=== PATIENT | female | born 1950 | race Caucasian/White ===

== ENCOUNTER 2019-11-11 19:28 | Inpatient (IN) | payer MEDICARE ==
[~2019-11-11] VITALS: Ht 165.1 cm; Wt 48.2 kg
[~2019-11-11 19:28] MED LIST: ASPI325 PO; HYDR1TAB94 PO
[2019-11-11 20:00] LABS: BASOPHILS ABSOLUTE AUTO 0.08 K/mm3 (0.00-0.23); BASOPHILS PERCENT AUTO 1 % (0-2); EOSINOPHILS ABSOLUTE AUTO 0.17 K/mm3 (0.00-0.68); EOSINOPHILS PERCENT AUTO 2 % (0-6); Hematocrit 45.8 % (33.0-51.0); Hemoglobin 14.9 g/dL (11.5-16.0); IMMATURE GRAN ABSOLUTE AUTO 0.04 K/mm3 (0.00-0.10); IMMATURE GRAN PERCENT AUTO 0 % (0-1); LYMPHOCYTES ABSOLUTE AUTO 3.97 K/mm3 (0.84-5.20); LYMPHOCYTES PERCENT AUTO 40 % (21-46); MONOCYTES ABSOLUTE AUTO 0.62 K/mm3 (0.16-1.47); MONOCYTES PERCENT AUTO 6 % (4-13); Mean Corpuscular HGB 30.7 pg (26.0-34.0); Mean Corpuscular HGB Conc 32.5 g/dL (31.5-36.5); Mean Corpuscular Volume 94 fL (80-100); Mean Platelet Volume 9.6 fL (9.1-12.4); NEUTROPHILS ABSOLUTE AUTO 5.18 K/mm3 (1.96-9.15); NEUTROPHILS PERCENT AUTO 51 % (41-73); Platelet Count 432 K/mm3 (150-400); RDW Coefficient Variation 12.3 % (11.7-14.2); RDW Standard Deviation 42.5 fL (35.1-46.3); Red Blood Cell Count 4.86 M/mm3 (3.80-5.20); White Blood Cell Count 10.06 K/mm3 (4.00-11.30)
[2019-11-11 20:18] LABS: International Normalized Ratio 1.11; Prothrombin Time Results 11.8 Sec (9.7-11.5)
[2019-11-11 20:20] LABS: Alanine Aminotransfer (ALT/SGP 14 U/L (12-78); Albumin, Blood 3.8 g/dL (3.4-5.0); Albumin/Globulin Ratio 1.2 (0.8-1.8); Alk Phos 57 U/L (50-136); Anion Gap 9 mmol/L (6-16); Aspartate Aminotrans (AST/SGOT 14 U/L (12-37); Bilirubin, Total 0.8 mg/dL (0.1-1.0); Blood Urea Nitrogen 19 mg/dL (8-24); Bun/Creatinine Ratio 32.8 (12.0-20.0); CO2, Blood 24 mmol/L (21-32); Calcium, Blood 8.9 mg/dL (8.5-10.1); Chloride, Blood 107 mmol/L (98-108); Creatinine, Blood 0.58 mg/dL (0.40-1.00); Globulin, Blood 3.3 g/dL (2.2-4.0); Glomerular Filtration Rate >60 (60-); Glucose, Blood 128 mg/dL (70-99); Potassium, Blood 3.2 mmol/L (3.5-5.5); Sodium, Blood 140 mmol/L (136-145); Total Protein, Blood 7.1 g/dL (6.4-8.2)
[2019-11-11 20:40] LABS: Source, Urine Catheter
[2019-11-11 20:51] LABS: Appearance, Urine Clear (Clear); Bilirubin, Urine Neg (Neg); Blood, Urine 1+ (Neg); Color, Urine Yellow (P-Yellow); Glucose Qualitative, Urine Neg (Neg); Ketones, Urine 1+ (Neg); Leukocyte Esterase, Urine Neg (Neg); Nitrite, Urine Neg (Neg); Protein, Urine 3+ (Neg); Urobilinogen, Urine NORM (Normal)
[2019-11-11 20:58] LABS: Red Blood Cells, Urine Rare /hpf (0-2); White Blood Cells, Urine 0-2 /hpf (0-5)
[2019-11-11 20:59] LABS: Bacteria Few /hpf; Squamous Epithelial Cells Rare /hpf (Few)
[2019-11-12 00:50] LABS: U Amphetamine Screen Not Detected; U Barbituate Screen Not Detected; U Benzodiazapine Screen Not Detected; U Buprenorphine Screen Not Detected; U Cannabinoids Screen Not Detected; U Cocaine Screen Not Detected; U Methadone Screen Not Detected; U Methamphetamine Screen Not Detected; U Opiates Screen Not Detected; U Oxycodone Screen Not Detected; U Phencyclidine Screen Not Detected; U Propoxyphene Screen Not Detected
--- NOTE | 2019-11-12 02:51 | NUR ---
ADMIT NOTE 69 YEAR OLD FEMALE ADMIT TO ICU [address] PAZ SERVICE PER ESVIN VIA ER. MOONITOR PLACED SHOWING SINUS TACH HEART RATE 100'S-110'S. LUNG SOUNDS CLEAR UPPER LOBES WITH DECREASED COARSE SOUNDS IN THE BASES. ABDOMEN SOFT WITH BOWEL SOUNDS FOUR QUADS.TREJO PATENT DRAINING RALPH URINE RIDE SIDE REMAINS FLACCID. REMAINS UNSRESPONSIVE TO TACTILE OR VERBAL STIMULI CONTINUE TO MONITOR AND RREPORT CHANGE IN PATIENT CONDITION
[2019-11-12 03:35] LABS: Hematocrit 53.5 % (33.0-51.0); Hemoglobin 16.8 g/dL (11.5-16.0); Mean Corpuscular HGB 30.4 pg (26.0-34.0); Mean Corpuscular HGB Conc 31.4 g/dL (31.5-36.5); Mean Corpuscular Volume 97 fL (80-100); Mean Platelet Volume 8.9 fL (9.1-12.4); Platelet Count 422 K/mm3 (150-400); RDW Standard Deviation 43.4 fL (35.1-46.3); Red Blood Cell Count 5.52 M/mm3 (3.80-5.20); White Blood Cell Count 23.82 K/mm3 (4.00-11.30)
[2019-11-12 04:48] LABS: Alanine Aminotransfer (ALT/SGP 18 U/L (12-78); Alk Phos 66 U/L (50-136); Anion Gap 7 mmol/L (6-16); Aspartate Aminotrans (AST/SGOT 13 U/L (12-37); Bilirubin, Total 0.7 mg/dL (0.1-1.0); Blood Urea Nitrogen 13 mg/dL (8-24); Bun/Creatinine Ratio 26.5 (12.0-20.0); CO2, Blood 26 mmol/L (21-32); Calcium, Blood 9.2 mg/dL (8.5-10.1); Chloride, Blood 105 mmol/L (98-108); Creatinine, Blood 0.49 mg/dL (0.40-1.00); Globulin, Blood 3.9 g/dL (2.2-4.0); Glomerular Filtration Rate >60 (60-); Glucose, Blood 137 mg/dL (70-99); Sodium, Blood 138 mmol/L (136-145); Total Protein, Blood 7.9 g/dL (6.4-8.2)
--- NOTE | 2019-11-12 05:50 | NUR ---
SHIFT SUMMARY; REMAINS UNRESPONSIVE TO TACTILE AND VERBAL STIMULI GAZE FIXED HOWEVER PUPILS REACITVE BRISKLY. MONITOR INTACT SHOWING SINUS TACH. HEART RATE 100'S-110'S. LUNF SOUNDS CLEAR UPPER WITH DECREASED SOUNDS IN THE BASES. RESPIRATIONS SHALLOW. ABDOMEN SOFT WITH BOWEL SOUNDS FOUR QUADS. TREJO PATENT DRAINING RALPH URINE. NO EDEMA NOTED. CONTINUE TO MONITOR AND REPORT CHANGE IN PATIENT CONDITION D
--- NOTE | 2019-11-12 07:24 | NUR ---
ASSUMING CARE: ASSUMED CARE OF PT. PT IS RESPONSIVE TO DEEP PAIN STIMULI BUT NOT TO VERBAL STIMULI. BABINSKI REFLEX NOTED BUT SLUGGISH RESPONSE. PT IS ON 2LPM NC. SEEN BY DR. HARRIS. UPDATED HIM OF PT'S STATUS. PT MOVED HER LEFT ARM CLOSE TO HER CHEST WITHOUT BEING ASKED.
--- NOTE | 2019-11-12 08:26 | NUR ---
BOOK EDITOR AT BEDSIDE DOING ECHOCARDIOGRAM AT THIS TIME.
--- NOTE | 2019-11-12 08:47 | NUR ---
PT'S NEIGHBOR NICKIE AT BEDSIDE. ASKED HER TO WRITE THE NAMES PT'S FAMILY SO WE CAN CONTACT PT'S FAMILY REGARDING PT.
--- NOTE | 2019-11-12 10:51 | NUR ---
Clinical Visit: Pt is not responsive to verbal cues, gentle touch. Hans, nurse, reports that pt has been responsive only to painful stimuli. Discussed concerns. She has spoken to the pt's neighbor. Neighbor reports that it was pt's wishes to be DNR/DNI status. There is no advance directive, that she is aware of. She provides a phone number to Rae Glover, a cousin. [phone]. Attempted to call. Left message with request for a return call. Will discuss DNR/DNI status if able to get ahold of her. This is the only known family member that the hospital is aware of.
--- NOTE | 2019-11-12 10:59 | NUR ---
PLACED NG TUBE ORDERED. XR DONE FOR NG TUBE CONFIRMATION PLACEMENT. DR. VARGAS RADIOLOGIST CONFIRMED NG TUBE PLACEMENT WHICH IS IN THE BODY OF THE STOMACH.
--- NOTE | 2019-11-12 11:13 | NUR ---
FABIANA, PHOTORESIST PRINTER AT BEDSIDE.
--- NOTE | 2019-11-12 16:47 | NUR ---
PT STARTED OPENING HER EYES TO VOICE AROUND 1430 TODAY BUT NOT FOLLOWING COMMANDS. PT CONTINUES TO BE OPENING HER EYES TO VOICE, STILL NOT FOLLOWING COMMANDS. PT TRIED TO REPOSITION HERSELF IN BED. NOTED SHE IS ABLE TO MOVE HER LEFT ARM AND SHOULDER BUT NOT THE R ARM. R SIDE OF BODY NOTED TO BE WEAKER THAN LEFT.
--- NOTE | 2019-11-12 18:37 | NUR ---
SHIFT SUMMARY: PT IS STILL OBTUNDED. SHE DOES OPENS HER EYES TO VOICE BUT NOT FOLLOWING COMMANDS. R SIDED WEAKNESS NOTED. PT MOVES HER LEFT UPPER EXTREMITY. ECHOCARDIOGRAM AND EEG WERE DONE. MRI PENDING- NO FAMILY TO FILL OUT MRI SCREENING. EDEL TAFOYA A COUSIN OF THE PATIENT, PER PT'S NEIGHBOR, WAS CONTACTED MANY TIME BUT HAS NOT HEARD ANY WORD FROM HER.
--- NOTE | 2019-11-12 19:15 | NUR ---
ASSUMED CARE AT 1915. PT OPEN EYES TO VOICE, ABLE TO INTERMITTEN FOLLOW WITH LEFT ARM/ BRISK WITHDRAWLING BILAT LOWER EXTREMTIES. RUE FLACCID. DELAYED WITHDRAWL WITH PAINFUL STIMULATION. NGT IN PLACE. TREJO INPLACE AND PATENT. PT IS TACHY HRS IN THE 115S. ELEVATED BLOOD PRESSURE PRN FOR BP>180. NS INFUSING AT 75ML/HR.
[2019-11-13 03:26] LABS: Hematocrit 46.7 % (33.0-51.0); Hemoglobin 15.9 g/dL (11.5-16.0); Mean Corpuscular HGB 30.8 pg (26.0-34.0); Mean Platelet Volume 9.2 fL (9.1-12.4); Platelet Count 456 K/mm3 (150-400); RDW Coefficient Variation 11.9 % (11.7-14.2); RDW Standard Deviation 39.5 fL (35.1-46.3); Red Blood Cell Count 5.17 M/mm3 (3.80-5.20); White Blood Cell Count 21.74 K/mm3 (4.00-11.30)
[2019-11-13 03:32] LABS: Mean Corpuscular Volume 90 fL (80-100)
[2019-11-13 03:45] LABS: Anion Gap 9 mmol/L (6-16); Blood Urea Nitrogen 14 mg/dL (8-24); Bun/Creatinine Ratio 30.4 (12.0-20.0); CO2, Blood 22 mmol/L (21-32); Chloride, Blood 105 mmol/L (98-108); Creatinine, Blood 0.46 mg/dL (0.40-1.00); Glomerular Filtration Rate >60 (60-); Glucose, Blood 113 mg/dL (70-99); Potassium, Blood 3.7 mmol/L (3.5-5.5); Sodium, Blood 136 mmol/L (136-145)
--- NOTE | 2019-11-13 06:22 | NUR ---
PT OPENS EYE SPONTANEOUS AND TO VERBAL STIMULI, ABLE TO FOLLOW SIMPLE COMMANDS ON LEFT ARM, OPEN EYES AND MOUTH WHEN PROMPTED. STILL DROWSEY BUT ABLE TO KEEP EYES OPEN FOR LONGER. NO MOVEMENT RUE. PT MOANS AND MAKES SOUNDS BUT NO WORDS. HEART RATE 120-130S. HYDRALZINE GIVEN FOR BP >180 X1. SATS >95% ON ROOM AIR. TREJO IN PLACE AND PATENT. AFEBRILE. PT IS POOOLING SALIVA IN MOUTH PRN SUCTIONING REQUIRED. PT COUGH IS WEAK AND IS UNABLE TO CLEAR THROAT ON OWN. NO ACUTE EVENTS OVERNIGHT WILL CONTINUE TO MONITOR
--- NOTE | 2019-11-13 07:20 | NUR ---
ASSUMED CARE AT 0700. REPORT FROM AMADO STILL. PT RESTING IN BED. SNORING RESP. OPENS EYES TO VERBAL STIMULI. DOES NOT FOLLOW COMMANDS. APPEARS TO MAKE EYE CONTACT c STAFF, QUICKLY RETURNS TO SLEEP s CONSTANT VERBAL STIMULI. GROSS MOVEMENT TO LEFT ARM. NO MOVEMENT TO RIGHT ARM c PAINFUL STIMULI. WITHDRAWS FROM PAIN BILATERAL LOWER EXT. PT NON VERBAL. SHONNA. LUNGS DIMINISHED IN BASES. PT ON RA. SINUS TACH ON MONITOR, RATE 120'S. SBP GOAL OF 160-180. NGT TUBE TO RIGHT NARE, PLACEMENT VERIFIED BY AUSCULTATION. ABD FLAT, SOFT, NON TENDER. BT HYPOACTIVE. TREJO PATENT AND DRAINING TO GRAVITY, CLEAR YELLOW URINE. WILL CONTINUE TO MONITOR.
--- NOTE | 2019-11-13 10:24 | NUR ---
DR ÁLVAREZ AT BEDSIDE FOR ASSESSMENT. PT HAS BEEN AWAKE MOST OF MORNING. TRACKING STAFF IN ROOM. INCOHERANT SOUNDS. PT STILL NOT FOLLOWING DIRECTIONS. UNABLE TO COMPLETE MRI D/T LACK OF ABILITY TO COMPLETE SCREENING FORM. DR ÁLVAREZ NOTIFIED, CTA ORDERED. HR ADDRESSED, TOPROL 25 MG BID ORDERED. STATUS CHANGED TO PCU.
--- NOTE | 2019-11-13 14:14 | NUR ---
Spoke with nursing and update on pt's condition rec'd. Pt's neighbor, Chaparrita, and her [facility] friend have been in to visit her. Nursing reports multiple attempts have been made to contact pt's cousin. Messages have not been returned so far. Nursing reports pt has been receiving some in home care assistance through [employer] in home care [employer]. Nursing reports they spoke with Kami at [facility] and received some information. Code status on file at [facility] is full code per nursing. Blanka opened her eyes at random times during my visit. Unable to follow commands at this time. Nursing reports she is a little more awake than yesterday, but has no verbal response. Her friend who assists with her yard maintenence states that Blanka receives [employer] food deliveries and her in home care helper assists with some meal prep. He ([facility] friend) reports that she has had "Seizure type episodes in the past where she acted similar to this but she woke up about a week later and was her normal self." He admits that "These episodes have been happening more frequently lately." PC will continue to follow for symptom management and advanced care planning. Attempts will continue to be made to contact pt's NOK to determine a decision maker if Blanka continues to not be able to make decisions for herself. At the time of this visit, Blanka appeared to be comfortable.
--- NOTE | 2019-11-13 17:25 | NUR ---
SHIFT SUMMARY PT NEURO STATUS IMPROVED THROUGHOUT THIS SHIFT. PT OPENING EYES SPONTANEOUSLY. APPEARS AWAKE FOR APPROX 1/4 OF SHIFT. TRACKING STAFF IN ROOM. CONTINUES TO HAVE GROSS MOVEMENT TO LEFT ARM, WITHDRAWLS FROM PAINFUL STIMULI TO LOWER EXTREMITIES. PT SQUEEZES LEFT HAND ON COMMAND. NGT REMAINS IN PLACE, CLAMPED. TREJO PATENT AND DRAINING TO GRAVITY. PT STATUS CHANGED TO PCU THIS SHIFT. CT HEAD COMPLETE THIS SHIFT. REPORT TO ONCOMING NURSE.
--- NOTE | 2019-11-13 19:15 | NUR ---
ASSUMED CARE AT 1915. PT SLEEPING, ABLE TO OPEN EYES TO VOICE, AND MOVES LEFT ARM PURPOSEFUL. SINUS TACHY, BP STABLE, ON ROOM AIR. TREJO IN PLACE AND DRAIN TO GRAVITY. NGT IN RIGHT NARE. NS INFUSING AT 75ML/HR.
[2019-11-14 03:27] LABS: BASOPHILS ABSOLUTE AUTO 0.03 K/mm3 (0.00-0.23); BASOPHILS PERCENT AUTO 0 % (0-2); EOSINOPHILS ABSOLUTE AUTO 0.01 K/mm3 (0.00-0.68); EOSINOPHILS PERCENT AUTO 0 % (0-6); Hematocrit 44.1 % (33.0-51.0); IMMATURE GRAN ABSOLUTE AUTO 0.06 K/mm3 (0.00-0.10); IMMATURE GRAN PERCENT AUTO 0 % (0-1); LYMPHOCYTES ABSOLUTE AUTO 1.53 K/mm3 (0.84-5.20); LYMPHOCYTES PERCENT AUTO 8 % (21-46); MONOCYTES ABSOLUTE AUTO 1.45 K/mm3 (0.16-1.47); MONOCYTES PERCENT AUTO 8 % (4-13); Mean Corpuscular HGB 30.7 pg (26.0-34.0); Mean Corpuscular Volume 90 fL (80-100); Mean Platelet Volume 9.2 fL (9.1-12.4); NEUTROPHILS ABSOLUTE AUTO 15.87 K/mm3 (1.96-9.15); NEUTROPHILS PERCENT AUTO 84 % (41-73); Platelet Count 405 K/mm3 (150-400); RDW Coefficient Variation 12.1 % (11.7-14.2); RDW Standard Deviation 40.3 fL (35.1-46.3); Red Blood Cell Count 4.88 M/mm3 (3.80-5.20); White Blood Cell Count 18.95 K/mm3 (4.00-11.30)
[2019-11-14 03:41] LABS: Anion Gap 9 mmol/L (6-16); Blood Urea Nitrogen 13 mg/dL (8-24); Bun/Creatinine Ratio 28.1 (12.0-20.0); CO2, Blood 22 mmol/L (21-32); Calcium, Blood 8.2 mg/dL (8.5-10.1); Chloride, Blood 106 mmol/L (98-108); Creatinine, Blood 0.46 mg/dL (0.40-1.00); Glomerular Filtration Rate >60 (60-); Glucose, Blood 99 mg/dL (70-99); Potassium, Blood 3.3 mmol/L (3.5-5.5); Sodium, Blood 137 mmol/L (136-145)
--- NOTE | 2019-11-14 06:30 | NUR ---
PT LETHARGIC, OPENS EYE SPONTANEOUSLY AND TO VERBAL. INTERMITTEN FOLLOWING COMMANDS. PT TACHY WITH ELEVATED BP. SATING >90 ON ROOM AIR. TREJO IN PLACE AND DRAINING TO GRAVITY. NGT IN PLACE. OT AND PT CONSULT ORDER PER DR. PAZ. PT HAS NPO FOR NEARLY 72 HOUR, NEED NURTRION ORDERED TO START TUBE FEED. POTASSIUM 3.3 40 MEQS ORDER AND INFUSING. NO ACUTE EVENTS OVERNIGHT WILL CONTINUE TO MONITOR
--- NOTE | 2019-11-14 07:25 | NUR ---
START OF SHIFT NOTE: RECEIVED REPORT FROM TESSY FISCHER, ASSUMED CARE, PATIENT SPONTANEOUSLY OPEN HER EYES BUT HAS A BLANK STARE, DOES NOT FOLLOW COMMANDS, MOVES RIGHT UPPER AND LOWER EXTREMITIES ON OWN, HOWEVER, RIGHT LOWER EXTREMITY WITHDRAWS SLIGHTLY FROM PAIN, RIGHT UPPER EXTREMITY IS FLACCID, PATIENT IS AFEBRILED, APPEARS TO BE IN NO PAIN AT THIS TIME, NG IN RIGHT NARES, NEED DIETARY CONSULT, LUNG SOUNDS ARE CLEAR, SINUS TACHY IN 100'S, SBP IN 120'S, IVF INFUSING AT 75 CC/HR ALSO HAS POTASSIUM INFUSING FOR K+ OF 3.3, BOWEL TONES HYPOACTIVE, PATIENT HAS TREJO CATHETER IN AND DRAINING GOOD AMOUNT OF CLEAR LIGHT YELLOW URINE, SEIZURE PADS IN PLACE, SKIN OVERALL C/D/I, CALL LIGHT IN REACH, WILL CONTINUE TO MONITOR.
--- NOTE | 2019-11-14 09:15 | NUR ---
SHY ARRIAGA TO SEE PATIENT, UPDATE PROVIDED, AM MEDICATIONS GIVEN, TUBE FEED, PIVOT 1.5 STARTED AT 20 CC/HR WHICH IS ALSO GOAL RATE, PATIENT TOLERATING WELL, CALL LIGHT IN REACH, WILL CONTINUE TO MONITOR.
--- NOTE | 2019-11-14 09:27 | NUR ---
ATTEMPTED TO CALL CONSULT TO DR. MORENO, LEFT MESSAGE ON HIS CELL PHONE, AWAITING CALL BACK.
--- NOTE | 2019-11-14 10:06 | NUR ---
DR. MORENO'S OFFICE CALLED BACK AND RELAYED THE MESSAGE THAT DR. MORENO IS NOT FIELD HOCKEY AND LACROSSE COACH, HE IS SEEING PATIENTS OTHERWISE, HE IS NOT ABLE TO CONSULT ON THIS CASE.
--- NOTE | 2019-11-14 10:44 | NUR ---
DR. ÁLVAREZ NOTIFIED THAT NEUROLOGY WILL NOT BE ABLE TO CONSULT ON ROOM 16, NO NEW ORDERS RECEIVED.
--- NOTE | 2019-11-14 12:28 | NUR ---
PATIENT IS RESTING COMFORTABLY AT THIS TIME, TUBE FEED INFUSING ORDERED, SLIGHT IMPROVEMENT IN MOVEMENT ON RIGHT UPPER AND LOWER EXTREMITIES, CALL LIGHT IN REACH, WILL CONTINUE TO MONITOR.
--- NOTE | 2019-11-14 13:44 | NUR ---
PT/OT IN TO EVALUATE PATIENT, BUT WERE UNABLE TO WORK WITH HER, WILL COME BACK LATER TODAY OR TOMORROW.
--- NOTE | 2019-11-14 15:00 | NUR ---
PATIENT'S NEIGHBOR AND CAREGIVER NICKIE IN TO SEE PATIENT, SAT WITH PATIENT FOR SOME TIME, PATIENT APPEARS TO BE SLEEPING, CALL LIGHT IN REACH, WILL CONTINUE TO MONITOR.
--- NOTE | 2019-11-14 17:55 | NUR ---
SHIFT SUMMARY NOTE: NO ACUTE EVENTS DURING THIS SHIFT, PATIENT CONTINUES TO BE NONVERBAL, OPENS EYES SPONTANEOUSLY BUT GAZE IS NOT PURPOSEFUL, UNABLE TO FOLLOW COMMANDS AT TIMES, RIGHT SIDE FLACCID, REPOSITIONED FREQUENTLY, TUBE FEED STARTED WITH PIVOT 1.5 AT 20 CC/HR WHICH IS GOAL, PATIENT TOLERATING WELL, NEW PIV STARTED ON RIGHT WRIST, PATIENT TOLERATED WELL, FOR DETAILS SEE SHIFT ASSESSMENT DOCUMENTATION AND NURSES NOTES, CALL LIGHT IN REACH, WILL CONTINUE TO MONITOR AND GIVE REPORT TO ONCOMING INSURANCE ACCOUNT REPRESENTATIVE.
--- NOTE | 2019-11-14 20:31 | NUR ---
ASSUMPTION OF CARE ASSUMED CARE OF PT @ 1900, PT IN BED, OPENS EYES TO VERBAL STIMULI, DOES NOT ANSWER QUESTIONS OR FOLLOW DIRECTIONS, GRASPS OBJECTS IN L HAND BUT DOES NOT SQUEEZE ON COMMAND. LS COARSE IN UPPER LOBES, O2 SATURATIONS MAINTAINED > 90% ON RA, SUCTIONING ORAL SECRETIONS NEEDED. MONITOR SHOWS SINUS TACH, HR 100-110, BP STABLE. TREJO DRAINING YELLOW URINE. SEIZURE PADS IN PLACE.
[2019-11-15 04:09] LABS: BASOPHILS ABSOLUTE AUTO 0.02 K/mm3 (0.00-0.23); BASOPHILS PERCENT AUTO 0 % (0-2); EOSINOPHILS ABSOLUTE AUTO 0.01 K/mm3 (0.00-0.68); EOSINOPHILS PERCENT AUTO 0 % (0-6); Hematocrit 41.2 % (33.0-51.0); Hemoglobin 14.1 g/dL (11.5-16.0); IMMATURE GRAN ABSOLUTE AUTO 0.04 K/mm3 (0.00-0.10); IMMATURE GRAN PERCENT AUTO 0 % (0-1); LYMPHOCYTES ABSOLUTE AUTO 1.53 K/mm3 (0.84-5.20); LYMPHOCYTES PERCENT AUTO 10 % (21-46); MONOCYTES ABSOLUTE AUTO 1.35 K/mm3 (0.16-1.47); MONOCYTES PERCENT AUTO 9 % (4-13); Mean Corpuscular HGB Conc 34.2 g/dL (31.5-36.5); Mean Corpuscular Volume 91 fL (80-100); NEUTROPHILS ABSOLUTE AUTO 12.14 K/mm3 (1.96-9.15); NEUTROPHILS PERCENT AUTO 81 % (41-73); Platelet Count 355 K/mm3 (150-400); RDW Coefficient Variation 12.1 % (11.7-14.2); RDW Standard Deviation 40.8 fL (35.1-46.3); Red Blood Cell Count 4.55 M/mm3 (3.80-5.20); White Blood Cell Count 15.09 K/mm3 (4.00-11.30)
[2019-11-15 04:26] LABS: Anion Gap 6 mmol/L (6-16); Blood Urea Nitrogen 17 mg/dL (8-24); Bun/Creatinine Ratio 38.5 (12.0-20.0); CO2, Blood 24 mmol/L (21-32); Chloride, Blood 110 mmol/L (98-108); Creatinine, Blood 0.44 mg/dL (0.40-1.00); Glomerular Filtration Rate >60 (60-); Glucose, Blood 129 mg/dL (70-99); Magnesium, Blood 1.7 mg/dL (1.6-2.4); Phosphorus, Blood 1.5 mg/dL (2.5-4.9); Potassium, Blood 3.3 mmol/L (3.5-5.5); Sodium, Blood 140 mmol/L (136-145)
--- NOTE | 2019-11-15 05:50 | NUR ---
SHIFT SUMMARY NO ACUTE CHANGES OVERNIGHT. PT AROUSES TO VERBAL STIMULI BUT REMAINS NONVERBAL, NO MOVEMENT TO R ARM, L ARM APPEARS TO HAVE SOME PURPOSEFUL MOVEMENT, SCRATCHING NOSE, FEELS NG TUBE BUT DOES NOT PULL OR TUG. PT OPENS EYES BUT DOES NOT TRACK ITEMS. LS CLEAR, RESPIRATIONS EVEN AND UNLABORED, PT REMAINS ON RA. MONITOR SHOWS SINUS RHYTHM, HR 90'S TO 105, HTN SBP 140'S-160'S. NG IN PLACE, TF @ 20ml. TREJO IN PLACE DRAINING YELLOW URINE. MORNING LABS SHOWED LOW POTASSIUM AND PHOSPHORUS, K-PHOS CURRENTLY INFUSING.
--- NOTE | 2019-11-15 07:20 | NUR ---
START OF SHIFT NOTE: RECEIVED REPORT FROM XAVIER GALEAS RN, ASSUMED CARE, PATIENT LYING IN BED, HAS EYES OPEN, ABLE TO FOLLOW SOME COMMANDS, ABLE TO SQUEEZE WITH LEFT HAND AND WIGGLE LEFT TOES, SLIGHT MOVEMENT OF THUMB ON LEFT UE NOTED, NO MOVEMENT ON LEFT LE, PATIENT HAS NG TUBE IN PLACE, INFUSING TUBE FEED PIVOT 1.5 AT 20 CC/HR WITH 30 CC WATER FLUSHES EVERY 4 HOURS, PATIENT TOLERATING WELL, LUNG SOUNDS DIMINISHED, HR 90'S, SBP'S IN 120'S, BOWEL TONES PRESENT IN ALL FOUR QUADRANTS, TREJO CATHETER IN PLACE, DRAINING RALPH COLORED URINE, PEDAL PULSES PALPABLE, CALL LIGHT IN REACH, WILL CONTINUE TO MONITOR.
--- NOTE | 2019-11-15 08:08 | NUR ---
ISTRATE IN TO SEE PATIENT, NO NEW ORDERS AT THIS TIME.
--- NOTE | 2019-11-15 10:33 | NUR ---
PATIENT'S NEIGHBOR AND CAREGIVER NICKIE AND HER IN ROOM, PATIENT IS TRYING TO SPEAK A FEW WORDS, BUT ALSO TRYING TO REMOVE NG TUBE, INSTRUCTED TO NOT PULL, NICKIE WAS UPDATED ON PATIENT CONDITION, CALL LIGHT IN REACH, WILL CONTINUE TO MONITOR.
--- NOTE | 2019-11-15 16:21 | NUR ---
PATIENT IS MUCH MORE ALERT WITH NEIGHBORS AND FRIENDS VISITING, WAS OBSERVED TO LIFT HER RIGHT ARM WITHOUT ANY PROBLEMS, TRYING TO SPEAK WORDS, ALSO TRYING TO PUSH HERSELF UP IN BED, CALL LIGHT IN REACH, WILL CONTINUE TO MONITOR.
--- NOTE | 2019-11-15 16:48 | NUR ---
CALLED DR. ÁLVAREZ AND UPDATE HIM ON PATIENT'S CONDITION AND THAT SHE IS NOW MOVING RIGHT UPPER EXTREMITY AND ABLE TO RECOGNIZE FRIENDS AND SPEAK SOME WORDS TO THEM.
--- NOTE | 2019-11-15 17:55 | NUR ---
SHIFT SUMMARY NOTE: NO ACUTE EVENTS DURING THIS SHIFT, PATIENT IS NOW ABLE TO MOVE RIGHT ARM, LIFT IT TO HER FACE, SHE IS ALSO SPEAKING SOME WORDS, MORE ALERT, TRYING TO PULL ON NG, BUT EASILY REDIRECTED, VSS, AFEBRILE, HAD MANY VISITORS TODAY, NEIGHBORS AND FRIENDS, TUBE FEEDING INFUSING AT 20 CC/HR, IVF'S CONTINUE AT A RATE OF 75 CC/HR, ESCELLENT URINE OUTPUT, LIGHT YELLOW AT 1900 CC DURING THIS SHIFT, FOR DETAILS SEE SHIFT ASSESSMENT AND NURSES NOTES, CALL LIGHT IN REACH, WILL CONTINUE TO MONITOR.
--- NOTE | 2019-11-15 20:00 | NUR ---
ASSUMPTION OF CARE: PT ATTEMPTING TO VERBALLY COMMUNICATE BUT WORDS ARE GARBLED. ABLE TO LIFT LEFT ARM, BUT NOT RIGHT. PT IN ST IN THE 100S, SBP IN THE 160-170S. LUNG SOUNDS CLEAR AND DIM IN BASES, SPO2 >90% ON RA. NG IN PLACE WITH TF RUNNING AT GOAL OF 20ML/HR. 20 IN RW-INFUSING WITH NS AT 75MLS/HR. 20G IN RFA PATENT AND SL. TREJO IN PLACE. NEIGHBOR AT BEDSIDE. WILL CONTINUE TO MONITOR.
[2019-11-16 03:48] LABS: BASOPHILS ABSOLUTE AUTO 0.04 K/mm3 (0.00-0.23); BASOPHILS PERCENT AUTO 0 % (0-2); EOSINOPHILS ABSOLUTE AUTO 0.13 K/mm3 (0.00-0.68); EOSINOPHILS PERCENT AUTO 1 % (0-6); Hematocrit 44.7 % (33.0-51.0); Hemoglobin 15.1 g/dL (11.5-16.0); IMMATURE GRAN ABSOLUTE AUTO 0.04 K/mm3 (0.00-0.10); IMMATURE GRAN PERCENT AUTO 0 % (0-1); LYMPHOCYTES PERCENT AUTO 17 % (21-46); MONOCYTES ABSOLUTE AUTO 1.41 K/mm3 (0.16-1.47); MONOCYTES PERCENT AUTO 10 % (4-13); Mean Corpuscular HGB 30.5 pg (26.0-34.0); Mean Corpuscular HGB Conc 33.8 g/dL (31.5-36.5); Mean Corpuscular Volume 90 fL (80-100); NEUTROPHILS ABSOLUTE AUTO 10.22 K/mm3 (1.96-9.15); NEUTROPHILS PERCENT AUTO 72 % (41-73); Platelet Count 357 K/mm3 (150-400); RDW Coefficient Variation 12.3 % (11.7-14.2); RDW Standard Deviation 40.7 fL (35.1-46.3); Red Blood Cell Count 4.95 M/mm3 (3.80-5.20); White Blood Cell Count 14.24 K/mm3 (4.00-11.30)
[2019-11-16 04:02] LABS: Anion Gap 7 mmol/L (6-16); Blood Urea Nitrogen 11 mg/dL (8-24); Bun/Creatinine Ratio 28.1 (12.0-20.0); CO2, Blood 27 mmol/L (21-32); Calcium, Blood 8.3 mg/dL (8.5-10.1); Chloride, Blood 107 mmol/L (98-108); Creatinine, Blood 0.39 mg/dL (0.40-1.00); Glomerular Filtration Rate >60 (60-); Glucose, Blood 113 mg/dL (70-99); Magnesium, Blood 1.8 mg/dL (1.6-2.4); Phosphorus, Blood 2.2 mg/dL (2.5-4.9); Potassium, Blood 3.4 mmol/L (3.5-5.5); Sodium, Blood 141 mmol/L (136-145)
--- NOTE | 2019-11-16 06:17 | NUR ---
SHIFT SUMMARY: PT ATTEMPTING TO TALK AT BEGINNING OF SHIFT, HOWEVER HAS BEEN RESTING MAJORITY OF SHIFT. ABLE TO MOVE RIGHT ARM. ATTEMPTS TO MOVE L ARM. PT HAS BEEN ST WITH HR IN THE 110-120S. BP ELEVATED ON AND OFF THROUGHOUT SHIFT. LUNG SOUNDS CLEAR AND DIM AT BASES. SPO2 >90% ON RA. NG IN PLACE WITH CTF AT 20ML/HR-GOAL. 20G IN R WRIST AND 20G IN RFA. NS INFUSING AT 75ML/HR. TREJO IN PLACE DRAINING CLEAR YELLOW URINE. WILL GIVE REPORT TO ONCOMING RN
--- NOTE | 2019-11-16 10:57 | NUR ---
TRANSFER OF CARE REPORT CALLED TO TESSY MUNOZ ON MEDICAL. PT TO TRANSFER TO ROOM 330, VIA BED. BELONGINGS GATHERED AND TRANSPORTED WITH PT.
--- NOTE | 2019-11-16 13:11 | NUR ---
WE RECEIVED DUTCH TO RM 330 FROM ICU VIA HER BED AT 1145. WE SLID HER OVER ONTO THE NEW BED AND MADE HER COMFORTABLE ON HER RIGHT SIDE WITH HOB UP 40 DEGREES. NGT CAPPED FOR TRANSPORT. IVF'S STOPPED FOR TRANSPORT. SHE IS PALE. EYES OPEN. SHE CAN LOOK AT ME. THE ONLY COMMAND SHE HAS FOLLOWED HAS BEEN TO SQUEEZE MY HAND. SHE WAS ABLE TO WITH HER LH BUT NOT THE RIGHT. SHE CAN MOVE BOTH ARMS. I HAVE NOT SEEN HER MOVE HER LEGS. SINCE ARRIVAL I CHECKED HER NGT FOR PLACEMENT WITH AIR AND MY STETHASCOPE. IT HAS GOOD PLACEMENT. TUBE FEEDING RESUMED AT 20 MLS AN HOUR. RAC IV DC'D. KPHOS STILL INFUSING. WILL RESUME NS INFUSION AFTER KPHOS.
--- NOTE | 2019-11-16 13:54 | NUR ---
ASSUMED CARE OF PATIENT FROM ELEMENT SETTER TAMMY MEDEIROS AT THIS TIME. PATIENT REPOSITIONED ON LEFT SIDE AND HOB AT APPROX 45 DEGREES AT THIS TIME. PATIENT APPEARS COMFORTABLE. SHE LOOKS AT ME WHEN I SPEAK TO HER BUT IS UNABLE TO VERBALIZE ANYTHING. KPHOS RUNNING AND TF RUNNING THOUGH NGT. WILL CONT TO MONITOR
--- NOTE | 2019-11-16 17:29 | NUR ---
SHIFT SUMMARY PATIENT MOSTLY RESTING SINCE I ASSUMED CARE AROUND 1400. SHE HAS TRIED TO TALK A FEW TIMES BUT UNABLE TO GET CLEAR WORDS OUT. SOME MINIMAL MOVEMENT IN R HAND, MOVES LEFT ARM AND CAN SQUEEZE HAND WELL. TUBE FEED RUNNING AT 20/HR THROUGH NGT. APPROPRIATE PLACEMENT. 0 RESIDUALS. HOB 45 DEGREE.
--- NOTE | 2019-11-17 05:06 | NUR ---
SHIFT SUMMARY PT HAS BEEN MUCH MORE RESPONSIVE THIS SHIFT. SHE IS DROWSY AND SLEEPY MOST OF THE TIME. SHE HAS BEGAN TO MAKE EYE CONTACT WITH STAFF AND ANSWERS TO HER NAME. SHE ALSO HAS BEGAN ANSWERING "YEA" TO QUESTIONS, AND IS TRYING TO SPEAK WORDS, DIFFICULT TO UNDERSTAND. PT HAS APPARENT EXPRESSIVE APHASIA. PT IS ABLE TO LIFT LEFT ARM AND LEANS MORE TO THE LEFT SIDE. LOWER EXT FLACCID. NG TUBE IN PLACE. FEEDINGS BEING CONTINUED AT ORDERED RATE TOLERATING FEEDS, SHE RUBS NOSE OCASSIONALLY BUT DOES NOT TUG AT TUBE. VITALS ARE STABLE. TREJO IN PLACE PATENT AND DRAINING. BED IN LOWEST POSITION, CALL LIGHT WITHIN REACH. WILL CONTINUE TO MONITOR AND REPORT TO ONCOMING RN.
[2019-11-17 05:34] LABS: BASOPHILS ABSOLUTE AUTO 0.01 K/mm3 (0.00-0.23); BASOPHILS PERCENT AUTO 0 % (0-2); EOSINOPHILS PERCENT AUTO 0 % (0-6); Hematocrit 40.4 % (33.0-51.0); Hemoglobin 13.5 g/dL (11.5-16.0); IMMATURE GRAN ABSOLUTE AUTO 0.04 K/mm3 (0.00-0.10); IMMATURE GRAN PERCENT AUTO 0 % (0-1); LYMPHOCYTES ABSOLUTE AUTO 0.82 K/mm3 (0.84-5.20); LYMPHOCYTES PERCENT AUTO 8 % (21-46); MONOCYTES ABSOLUTE AUTO 0.42 K/mm3 (0.16-1.47); MONOCYTES PERCENT AUTO 4 % (4-13); Mean Corpuscular HGB 30.3 pg (26.0-34.0); Mean Corpuscular HGB Conc 33.4 g/dL (31.5-36.5); Mean Corpuscular Volume 91 fL (80-100); Mean Platelet Volume 9.4 fL (9.1-12.4); NEUTROPHILS ABSOLUTE AUTO 9.68 K/mm3 (1.96-9.15); NEUTROPHILS PERCENT AUTO 88 % (41-73); Platelet Count 361 K/mm3 (150-400); RDW Coefficient Variation 12.2 % (11.7-14.2); RDW Standard Deviation 40.8 fL (35.1-46.3); Red Blood Cell Count 4.45 M/mm3 (3.80-5.20); White Blood Cell Count 10.97 K/mm3 (4.00-11.30)
[2019-11-17 05:50] LABS: Albumin, Blood 2.5 g/dL (3.4-5.0); Anion Gap 6 mmol/L (6-16); Blood Urea Nitrogen 17 mg/dL (8-24); Bun/Creatinine Ratio 43.5 (12.0-20.0); CO2, Blood 26 mmol/L (21-32); Calcium, Blood 8.5 mg/dL (8.5-10.1); Chloride, Blood 108 mmol/L (98-108); Creatinine, Blood 0.39 mg/dL (0.40-1.00); Glomerular Filtration Rate >60 (60-); Glucose, Blood 137 mg/dL (70-99); Magnesium, Blood 1.9 mg/dL (1.6-2.4); Phosphorus, Blood 2.7 mg/dL (2.5-4.9); Potassium, Blood 3.9 mmol/L (3.5-5.5); Sodium, Blood 140 mmol/L (136-145)
--- NOTE | 2019-11-17 08:03 | NUR ---
NGT PLACEMENT CONFIRMED NGT PLACEMENT CONFIRMED BY THIS RN.
--- NOTE | 2019-11-17 10:22 | NUR ---
PT COUSIN UPDATED. PT COUSIN, EDEL MICHELET, UPDATED ON PT CONDITION. COUSIN REQUESTING CALL FROM PALLATIVE CARE. PALLATIVE NOTIFIED.
--- NOTE | 2019-11-17 10:55 | NUR ---
Recieved Call from patients cousin Rae. She reviewed that pt moved up here and isolated herself. She does not have family or children. Her cousin Rae sates she iselerly herself and hesitant to make decisions for her. Rae has a son Camacho who is a nurse and is Sharons god son. She is going to speak with him and ask if he is willing to be her next of kin decision maker. Review of of case with car wrecker and nursing. Will review with therapy for prognsosis and update family.
--- NOTE | 2019-11-17 14:03 | NUR ---
PERMISSION TO CARE I, KILLIAN CORTEZ A STUDENT NURSE, RECEIVED PERMISSION TO PROVIDE CARE ON 11-18-2019
--- NOTE | 2019-11-17 16:18 | NUR ---
RESTRAINTS APPLIED BILATERAL WRIST RESTRAINTS APPLIED AT 1613. PT CONTINUOUSLY TRYING TO PULL OUT NGT. PT HAD PREVIOUSLY PULLED OUT IV SLIGHTLY CAUSING IT TO LEAK. NEW IV PLACED. DR. OREILLYTRATE CALLED & INFORMED. NEED FOR NGT CONTINUES UNTIL SPEECH EVAL CAN BE COMPLETED. ORDER FOR BILATERAL SOFT WRIST RESTRAINTS OBTAINED. WILL CONTINUE TO MONITOR.
--- NOTE | 2019-11-17 16:51 | NUR ---
SHIFT SUMMARY PT PLACED IN WRIST RESTRAINTS TO PROTECT NGT AND IV LINE. PT ON JEVITY 1.5 RUNNING 25ML/HR. FLUSH Q4 30ML. TOLERATING WELL. LESS THAN 10CC RESIDUAL THROUGHOUT THE DAY. PT MORE ALERT THIS AFTERNOON. VERBALIZING, BUT INCOMPREHENSIBLE. TREJO DCED. AWAITING PT TO VOID. WILL CONTINUE TO MONITOR UNTIL TURNOVER IS COMPLETE.
--- NOTE | 2019-11-17 17:03 | NUR ---
Initial spiritual care note: Pt was alone in room and sleeping. She stirred to touch and mumbled incoherantly. She then went back to sleep. Per chart she is Alevism, so I provided audible prayer at bedside. I will remain available.
--- NOTE | 2019-11-18 03:49 | NUR ---
SHIFT SUMMARY ADMITTED FOR UNRESPONSIVENESS. FULL CODE. NS INFUSING @ 75 ML/HR. NG TUBE FEEDING @ 25 ML/HR, 30 ML FLUSHES ARE PROGRAMMED. Q 4 HR RESIDUAL CHECKS ARE ORDERED. LAST BLADDER SCAN REVEALED 247 ML OF URINE. PT HAD UNMEASURED VOID IN HER ATTENDS WELL. KEPPRA IV SCHEDULED. PT IS NPO. SOFT WRIST RESTRAINTS IN PLACE PT TRIES TO TUG AT HER IV'S AND NG TUBING. HOPEFUL FOR PT/OT AND SWALLOW EVAL TOMORROW. ORAL CARE IS BEING PERFORMED Q 4 HRS. RA. PT IS ORIENTED TO SELF AND CAREGIVER. NON-RESPONSIVE TO ME.
[2019-11-18 05:25] LABS: BASOPHILS ABSOLUTE AUTO 0.02 K/mm3 (0.00-0.23); BASOPHILS PERCENT AUTO 0 % (0-2); EOSINOPHILS PERCENT AUTO 0 % (0-6); Hemoglobin 13.5 g/dL (11.5-16.0); IMMATURE GRAN ABSOLUTE AUTO 0.08 K/mm3 (0.00-0.10); IMMATURE GRAN PERCENT AUTO 1 % (0-1); LYMPHOCYTES ABSOLUTE AUTO 1.08 K/mm3 (0.84-5.20); LYMPHOCYTES PERCENT AUTO 7 % (21-46); MONOCYTES ABSOLUTE AUTO 1.12 K/mm3 (0.16-1.47); MONOCYTES PERCENT AUTO 7 % (4-13); Mean Corpuscular HGB 30.3 pg (26.0-34.0); Mean Corpuscular HGB Conc 32.9 g/dL (31.5-36.5); Mean Corpuscular Volume 92 fL (80-100); Mean Platelet Volume 9.3 fL (9.1-12.4); NEUTROPHILS ABSOLUTE AUTO 14.24 K/mm3 (1.96-9.15); NEUTROPHILS PERCENT AUTO 86 % (41-73); Platelet Count 395 K/mm3 (150-400); RDW Coefficient Variation 12.4 % (11.7-14.2); RDW Standard Deviation 41.5 fL (35.1-46.3); Red Blood Cell Count 4.46 M/mm3 (3.80-5.20); White Blood Cell Count 16.54 K/mm3 (4.00-11.30)
[2019-11-18 05:37] LABS: Anion Gap 6 mmol/L (6-16); Blood Urea Nitrogen 18 mg/dL (8-24); Bun/Creatinine Ratio 45.5 (12.0-20.0); CO2, Blood 26 mmol/L (21-32); Calcium, Blood 8.4 mg/dL (8.5-10.1); Chloride, Blood 109 mmol/L (98-108); Glomerular Filtration Rate >60 (60-); Glucose, Blood 139 mg/dL (70-99); Magnesium, Blood 1.9 mg/dL (1.6-2.4); Phosphorus, Blood 2.3 mg/dL (2.5-4.9); Potassium, Blood 3.4 mmol/L (3.5-5.5); Sodium, Blood 141 mmol/L (136-145)
--- NOTE | 2019-11-18 08:35 | NUR ---
STRAIGHT CATH ONE TIME STRAIGHT CATH ORDERED FOR UA TO BE COMPLETED PER DR. ÁLVAREZ
--- NOTE | 2019-11-18 10:11 | NUR ---
CONTINUOUS FEEDING TUBING CHANGED CONT FEEDING TUBING CHANGED AT 1000.
[2019-11-18 10:37] LABS: Source, Urine Catheter
[2019-11-18 10:55] LABS: Bilirubin, Urine Neg (Neg); Blood, Urine 1+ (Neg); Glucose Qualitative, Urine Neg (Neg); Ketones, Urine Neg (Neg); Leukocyte Esterase, Urine Neg (Neg); Nitrite, Urine Neg (Neg); Protein, Urine Neg (Neg); Urobilinogen, Urine NORM (Normal)
[2019-11-18 11:11] LABS: Appearance, Urine Clear (Clear); Bacteria Not Seen /hpf; Color, Urine Yellow (P-Yellow); Red Blood Cells, Urine 0-2 /hpf (0-2); Squamous Epithelial Cells Rare /hpf (Few); White Blood Cells, Urine Not Seen /hpf (0-5)
--- NOTE | 2019-11-18 18:05 | NUR ---
SHIFT SUMMARY PT NGT RUNNING 30ML/HR OF JEVITY 1.5. TOLERATING WELL. HIGHEST RESIDUAL WAS 10CC. IV RUNNING AND INTACT. PT INCONT & HEAVY WETTER. UA COLLECTED TODAY. PT MORE ALERT THIS EVENING. MUMBLING TO HERSELF. RESTRAINTS IN PLACE TO PROTECT NGT AND IV LINE. NO OTHER CHANGES IN ASSESSMENT AT THIS TIME. VSS. WILL CONTINUE TO MONITOR UNTIL TURNOVER IS COMPLETE.
--- NOTE | 2019-11-19 04:26 | NUR ---
SHIFT SUMMARY ADMITTED FOR UNRESPONSIVENESS. FULL CODE. CONFUSED, PT PULLING AT NG TUBE & IV'S. WRIST RESTRAINTS IN PLACE. TUBE FEEDING THROUGH NG TUBE, VERY LITTLE TO NO RESIDUAL. PT REFUSED COOPERATION IN SWALLOW EVAL AGAIN TODAY. [address] IV FLUIDS INFUSING ORDERED. RA. SHE SEEMS MORE ALERT THIS SHIFT, VERBALIZING CLEARLY "STOP" WHEN WE ARE CHANGING HER OR REPOSITIONING HER. CAREGIVER INFORMS ME THAT FAMILY HOPES TO ARRIVE HERE TOMORROW, SO THAT DECISIONS CAN BE MADE ABOUT HER FUTURE CARE. HX: MS, SKIN CANCER, HTN.
[2019-11-19 05:49] LABS: BASOPHILS ABSOLUTE AUTO 0.02 K/mm3 (0.00-0.23); BASOPHILS PERCENT AUTO 0 % (0-2); EOSINOPHILS PERCENT AUTO 0 % (0-6); Hematocrit 44.7 % (33.0-51.0); Hemoglobin 14.6 g/dL (11.5-16.0); IMMATURE GRAN ABSOLUTE AUTO 0.11 K/mm3 (0.00-0.10); IMMATURE GRAN PERCENT AUTO 1 % (0-1); LYMPHOCYTES ABSOLUTE AUTO 0.83 K/mm3 (0.84-5.20); LYMPHOCYTES PERCENT AUTO 4 % (21-46); MONOCYTES ABSOLUTE AUTO 1.59 K/mm3 (0.16-1.47); MONOCYTES PERCENT AUTO 9 % (4-13); Mean Corpuscular HGB 30.7 pg (26.0-34.0); Mean Corpuscular HGB Conc 32.7 g/dL (31.5-36.5); Mean Corpuscular Volume 94 fL (80-100); Mean Platelet Volume 9.3 fL (9.1-12.4); NEUTROPHILS ABSOLUTE AUTO 16.11 K/mm3 (1.96-9.15); NEUTROPHILS PERCENT AUTO 86 % (41-73); Platelet Count 467 K/mm3 (150-400); RDW Coefficient Variation 12.5 % (11.7-14.2); RDW Standard Deviation 43.4 fL (35.1-46.3); Red Blood Cell Count 4.75 M/mm3 (3.80-5.20); White Blood Cell Count 18.66 K/mm3 (4.00-11.30)
[2019-11-19 06:04] LABS: Anion Gap 8 mmol/L (6-16); Blood Urea Nitrogen 17 mg/dL (8-24); Bun/Creatinine Ratio 42.6 (12.0-20.0); CO2, Blood 22 mmol/L (21-32); Calcium, Blood 8.5 mg/dL (8.5-10.1); Chloride, Blood 107 mmol/L (98-108); Glomerular Filtration Rate >60 (60-); Glucose, Blood 128 mg/dL (70-99); Potassium, Blood 3.8 mmol/L (3.5-5.5); Sodium, Blood 137 mmol/L (136-145)
--- NOTE | 2019-11-19 14:06 | NUR ---
HOB UP 45 DEGREES FOR TF AT 30 MLS/HR. SHE HOLDS HER HEAD SEVERELY TO HER LEFT. WE SUPPORT IT WITH PILLOWS. HER IVF'S CONTINUE AT 75 MLS/HR. SHE IS INCONTINENT OF LARGE AMTS OF URINE. SHE HAS OPENED HER EYES. SHE HAS SAID A FEW WORDS THAT WERE CLEAR BUT DIDN'T MEAN ANYTHING. HER FRIEND/CAREGIVER NICKIE HAS BEEN HERE TWICE TODAY TO VISIT HER. DUTCH HAS NOT INTERACTED WITH HER. SHE APPEARS TO BE COMFORTABLE THOUGH BECAUSE OF HOW SHE HOLDS HER HEAD SHE LOOKS LIKE SHE SHOULD BE UNCOMFORTABLE. BILATERAL WRIST RESTRAINTS ARE ON BECAUSE IT IS REPORTED THAT SHE PULLED OUT MULTIPLE IV'S AND MAYBE HER NGT. IT IS A SALEM SUMP. IT LOOKS TO BE THE SAME ONE I SAW 3 DAYS AGO. SHE TOLERATES MEDS AND SLOW FEEDING THROUGH THE TUBE. HER FAMILY CALLED THIS MORNING AND ESTIMATED THEIR ARRIVAL FOR ABOUT 1445 TODAY.
--- NOTE | 2019-11-19 18:46 | NUR ---
SHE STILL HAS WRIST RESTRAINTS ON. HER NGT FEEDING IS ONGOING. HOB ELEVATED. LUNGS CLEAR BUT DIMINISHED. IV SITE STARTED LEAKING THIS EVENING. I HAD TO REMOVE IT. I NOTIFIED MD. HE SAID WE CAN LEAVE IT OUT AND CHANGE MEDS TO PT. WE HAVE BEEN GIVING ALL HER PO MEDS PT SINCE HER FEEDING TUBE WAS INSERTED DAYS AGO. HER FAMILY FROM [place] CAME AND SPENT TIME WITH HER TO DISCUSS WHAT SHE WANTS. SHE REALLY BECAME MUCH MORE INTERACTIVE WITH THEM COMPARED TO US. SHE SAYS YES TO HOME ON HOSPICE. SHE SAYS NO TO FEEDING TUBE AND RESTRAINTS. SHE SAID NO TO PAIN. HER FAMILY LEFT AFTER 5 PM WHEN THE PALLIATIVE NURSE COULD NOT COME. THEY WILL BE BACK TOMORROW AND CONSULT WITH PALLIATIVE CARE THEN. SHE IS RESTLESS THIS LAST 45 MIN BUT LOOKS LIKE SHE WILL SETTLE TO SLEEP.
--- NOTE | 2019-11-19 21:36 | NUR ---
SPOKE TO CORINNE LYNCH FILTER PRESS TENDER HEAD REGARDING PT NEEDS TO GO FOR IMAGING TONIGHT; PER REPORT FROM THE IMAGING DEPT THEY WERE UNABLE TO COMPLETE THIS ORDER EARLIER DUE TO PT INABILITY TO REMAIN STILL. PT IS STILL QUITE RESTLESS AT THIS TIME. ALSO PER REPROT FROM DAY RN HER POC IS TO GO HOME WITH HOSPICE, PENDING PALLIATIVE CARE MEETING WITH HER FAMILY TOMORROW. RECVD INSTRUCTION THAT WE CAN HOLD THIS ORDER TIL TOMORROW.
[2019-11-20 05:21] LABS: BASOPHILS ABSOLUTE AUTO 0.01 K/mm3 (0.00-0.23); BASOPHILS PERCENT AUTO 0 % (0-2); EOSINOPHILS PERCENT AUTO 0 % (0-6); Hematocrit 39.1 % (33.0-51.0); Hemoglobin 13.1 g/dL (11.5-16.0); IMMATURE GRAN ABSOLUTE AUTO 0.12 K/mm3 (0.00-0.10); IMMATURE GRAN PERCENT AUTO 1 % (0-1); LYMPHOCYTES ABSOLUTE AUTO 0.67 K/mm3 (0.84-5.20); LYMPHOCYTES PERCENT AUTO 5 % (21-46); MONOCYTES ABSOLUTE AUTO 1.22 K/mm3 (0.16-1.47); MONOCYTES PERCENT AUTO 8 % (4-13); Mean Corpuscular HGB 30.8 pg (26.0-34.0); Mean Corpuscular HGB Conc 33.5 g/dL (31.5-36.5); Mean Corpuscular Volume 92 fL (80-100); Mean Platelet Volume 9.2 fL (9.1-12.4); NEUTROPHILS ABSOLUTE AUTO 12.54 K/mm3 (1.96-9.15); NEUTROPHILS PERCENT AUTO 86 % (41-73); Platelet Count 425 K/mm3 (150-400); RDW Coefficient Variation 12.3 % (11.7-14.2); RDW Standard Deviation 41.7 fL (35.1-46.3); Red Blood Cell Count 4.26 M/mm3 (3.80-5.20); White Blood Cell Count 14.56 K/mm3 (4.00-11.30)
[2019-11-20 05:44] LABS: Albumin, Blood 2.5 g/dL (3.4-5.0); Anion Gap 5 mmol/L (6-16); Blood Urea Nitrogen 23 mg/dL (8-24); CO2, Blood 29 mmol/L (21-32); Calcium, Blood 8.6 mg/dL (8.5-10.1); Chloride, Blood 105 mmol/L (98-108); Creatinine, Blood 0.43 mg/dL (0.40-1.00); Glomerular Filtration Rate >60 (60-); Glucose, Blood 147 mg/dL (70-99); Phosphorus, Blood 2.3 mg/dL (2.5-4.9); Potassium, Blood 3.8 mmol/L (3.5-5.5); Sodium, Blood 139 mmol/L (136-145)
--- NOTE | 2019-11-20 07:06 | NUR ---
PATIENT SLEPT INTERMITTENTY. I GOT HER KEPPRA CONVERTED TO AN ORAL SOLUTION FOR NGT. SHE STILL NEEDS TO HAVE THE HIGH-DOSE STEROID CONVERTED TO A MED APPROPRIATE TO THE NGT. SHE HAS NO IV. PER YESTERDAYS DAY RN DR CHAU MUNOZ TO LEAVE IV OUT AND CONVERT MEDS TO PO. PASSED THIS INFO TO DAY RN. ALSO THAT IMAGING WAS WANTING TO KNOW IF THE DR STILL WANTED TO ATTEMPT TO SCAN HER ABDOMEN? IF SO SHE MAY NEED TO BE SEDATED. THEY HAVE NO WAY TO RESTRAIN HER
--- NOTE | 2019-11-20 11:20 | NUR ---
Pt visit this AM. Pt resting in bed with her eyes closed. Pt minimally responds and only mumbles. Family at bedside. Listened as family reports Pt was more alert yesterday with Pt stating she wants to go home and focus on comfort. Family report for much of her life she has been expressing these wishes and her acctions also fall in line with her wishes. Pt refuses her MS medications and rarely takes her other maintenance medications. Pt has not eaten for nutrition is quite sometime and focuses on foods and fluids that give her pleasure. Family reports Pt wishes are for hospice and comfort care. Educated on hospice and comfort care philosophy with V/U made by family. Offered hospice agencies to choose from. Family would like to get Pt home as soon as possible and chooses [facility]. Chief Meter Reader Malena present for part of visit and is aware of wishes. Malena will start the process of discharging Pt with [facility]. No other concerns reported at this time. Spoke with Dr Zaidi and relayed Pt wishes. Dr Zaidi is agreeable with plan. Placed comfort care orders, comfort care order set, and discontinued maintenance medications per V/O from Dr Zaidi. Spoke with bedside TESSY Mcintosh and discussed case. Palliative Care will remain available for symptom management and therapeutic visits.
--- NOTE | 2019-11-20 11:45 | NUR ---
Late Entry from previous visit. Called and spoke with Pt's cousin (God son) Camacho and Pt's cousin Rae by phone. Completed POLST over the phone with education provided on life sustaining measures. POLST completed with Pt's wishes to be DNR and Comfort Measures Only. Phone call placed on speaker with Palliative Care RN Kristina witnessing Pt and family wishes.
--- NOTE | 2019-11-20 12:24 | NUR ---
PT GIVEN A BED BATH EARLIER, PT APPEARS COMFORTABLE AT THIS TIME, NO LONGER IN RESTRAINTS
--- NOTE | 2019-11-20 15:03 | NUR ---
PT MORE AWAKE AT THIS TIME ABLE TO DRINK SOME WATER, PTS FAMILY HAS BEEN IN TO SEE THE PT, MAKING HOME READY FOR PT TO DC
--- NOTE | 2019-11-20 15:49 | NUR ---
PT SLEEPING APPEARS COMFORTABLE AT THIS TIME
--- NOTE | 2019-11-20 18:31 | NUR ---
PT IS ALERT MORE THIS AFTERNOON, THE PT WAS ABLE TO EAT A SMALL AMOUNT OF DINNER WITHOUT INCIDENT, THE PTS FAMILY WAS IN TO SEE THE PT T/O THE DAY, THE PT WAS TURNED T/O THE DAY AND GIVEN A BED BATH, THE PT HAD A MEDIUM SIZED FORMED BM TODAY, CALL LIGHT IN REACH, PT APPEARS TO BE COMFORTABLE
--- NOTE | 2019-11-20 19:50 | NUR ---
ASSUMED CARE OF PATIENT. PATIENT AGITATED, ANXIOUS, CALLING OUT HELP, COME IN, SPEAKING NONSENSICAL AT BASELINE. PATIENT IS PULLING OFF HER GOWN. BROUGHT IN A CONVEYOR WEIGHER OPERATOR WEIGHT PETIT GOWN FOR HER AND REMOVED BLANKETS LEAVING JUST THE SHEET. REPOSITIONED. CHECKED LINENS WHICH ARE DRY. PATIENT HAS NO IV. PO ATIVAN CRUSHED IN NECTAR THICK LIQUID WHICH PATIENT WAS ABLE TO SWALLOW. BED LOW AND LOCKED 3RD RAIL RAISED. BED ALARMED. CALL DORANTES WITHIN REACH. WILL CONTINUE TO MONITOR.
--- NOTE | 2019-11-20 20:12 | NUR ---
RE-CHECK ON PATIENT AFTER GIVING ATIVAN 1MG PER EMAR. SHE IS RESTING QUIETLY IN NO APPARENT DISTRESS. WILL CONTINUE TO MONITOR.
--- NOTE | 2019-11-20 22:03 | NUR ---
COMFORT CARE ROUND. CHANGED LINEN. REPOSITIONED. PATIENT IS RESTING QUIETLY, NO APPARENT DISTRESS. SHE REMAINS RESISTIVE TO MOVING/TURNING. WILL CONTINUE TO MONITOR.
--- NOTE | 2019-11-20 22:07 | NUR ---
COMFORT CARE ROUND. CHANGED LINEN. REPOSITIONED PATIENT. SHE REMAINS RESISTIANT TO MOVING/TURNING, BUT SHE IS CURRENTLY RESTING QUIELTY WITH NO APPARENT DISTRESS. BED LOW AND LOCKED. CALL DORANTES WITHIN REACH.
--- NOTE | 2019-11-21 08:57 | NUR ---
PT APPEARS TO BE SLEEPING THIS , APPEARS COMFORTABLE
--- NOTE | 2019-11-21 10:04 | NUR ---
pt resting not non versal s/s of pain or airhunger plan is to get her home today with hospice support.
[2019-11-21] MEDS ORDERED: Feverall650 MG PR (10:13)
[2019-11-21] MEDS ORDERED: ATROPINE 0.01%-10 ML SL (10:13)
[2019-11-21] MEDS ORDERED: LORA1 PO (10:14)
[2019-11-21] MEDS ORDERED: MORP20L SL (10:14)
[2019-11-21] MEDS ORDERED: LEVE500 PO (10:14)
[2019-11-21] MEDS ORDERED: PROM25S PR (10:15)
[2019-11-21] MEDS ORDERED: Transderm-Scop1 EACH TD (10:15)
--- NOTE | 2019-11-21 10:51 | NUR ---
PT DISCHARGED PT DC'D TO HOME WITH HOSPICE CARE, FAMILY IN TO SEE THE PT THIS AM AND AWARE OF THE TRANSFER TO HOME. PTS ATTENDS CHANGED PRIOR TO DC, PT APPEARED TO BREATHING EASILY ON RA AT THE TIME OF DC
== END 2019-11-21 10:43 | disposition hospice, home (50) | DRG 58 ==
LOC: ER 19:28 → ICUW 21:44 → ICUE 23:07 → ICUW 23:34 → ICUE 11-15 17:50 → MEDS 11-16 11:00 → ENPENDDIS 11-20 14:03 → MEDS 11-21 10:43
PROVIDERS: Emergency Medicine; Family Medicine; Internal Medicine; ADMIT Internal Medicine
DX: G35 Multiple sclerosis (principal); J96.01 Acute respiratory failure with hypoxia; G93.40 Encephalopathy, unspecified; Z99.3 Dependence on wheelchair; E87.6 Hypokalemia; R56.9 Unspecified convulsions; Z66 Do not resuscitate
CPT/HCPCS: 36415; 51702; 70450; 70496; 70498; 71045; 80048; 80053; 80069; 81001; 82947; 83735; 84100; 85025; 85027; 85610; 85730; 87086; 92507; 92523; 93005; 93010; 93306; 95819; 96365-59; 96375-59; 97112; 97163; 97167; 97530; 99285-25; J0360; J1650; J1953; J1956; J2060; J2930; J3480; J7030; J7060; Q9967